=== PATIENT | female | born 1990 | race Caucasian/White ===

== ENCOUNTER 2021-11-25 11:39 | Emergency (ER) | payer BC, OTHER ==
[2021-11-25 12:07] VITALS: BP 121/79; PULSE 80; TEMP 97.5; BMI 36.8
[2021-11-25] MEDS ORDERED: IBUPROFEN 600 MG TABLET (FP) PO ONE ×2 (13:38)
== END 2021-11-25 14:23 | disposition home or self-care (01) ==
LOC: JERFT 11:39
PROC: 08QNXZZ Repair Right Upper Eyelid, External Approach (ICD-10-PCS; principal; 2021-11-25)
DX: S01.112A Laceration without foreign body of left eyelid and periocular area, initial encounter (principal); W22.8XXA Striking against or struck by other objects, initial encounter; Y07.03 Male partner, perpetrator of maltreatment and neglect
CPT/HCPCS: 99283-25

== ENCOUNTER 2021-12-02 16:23 | Emergency (ER) | payer OTHER ==
[2021-12-02 16:29] VITALS: BP 119/74; PULSE 78; RESP 17; TEMP 98.3; BMI 36.8
== END 2021-12-02 16:57 | disposition home or self-care (01) ==
LOC: JERFT 16:23
DX: Z48.02 Encounter for removal of sutures (principal)
CPT/HCPCS: 99281-25

== ENCOUNTER 2023-06-03 07:55 | Emergency (ER) | payer OTHER ==
[2023-06-03 08:09] VITALS: RESP 18; BMI 34.3
[2023-06-03 14:21] VITALS: BP 132/89; PULSE 100; TEMP 97.5
== END 2023-06-03 10:50 | disposition home or self-care (01) ==
LOC: JERFT 07:55
DX: R09.81 Nasal congestion (principal); J02.9 Acute pharyngitis, unspecified; R05.9 Cough, unspecified; R11.10 Vomiting, unspecified; R19.7 Diarrhea, unspecified; R50.9 Fever, unspecified; J10.1 Influenza due to other identified influenza virus with other respiratory manifestations; Z20.822 Contact with and (suspected) exposure to COVID-19
CPT/HCPCS: 0241U-QW; 99283-25

== ENCOUNTER 2023-06-06 12:30 | Emergency (ER) | payer OTHER ==
[2023-06-06 12:36] VITALS: BP 144/91; PULSE 74; RESP 18; TEMP 99; BMI 34.3
[2023-06-06] MEDS ORDERED: SODIUM CHLORIDE FOR INHALATION 3 ML VIAL.NEB IH ONE (12:53)
[2023-06-06] MEDS ORDERED: ACETAMINOPHEN 500 MG TABLET (FP) PO ONE (12:55)
[2023-06-06] MEDS ORDERED: PSEUDOEPHEDRINE HCL 60 MG TABLET PO ONE (12:55)
[2023-06-06] MEDS ORDERED: KETOROLAC TROMETHAMINE 30 MG/1 ML VIAL IM ONE (12:56)
[2023-06-06] MEDS ORDERED: BENZONATATE 200 MG CAPSULE PO PRN (12:57)
[2023-06-06] MEDS ORDERED: BENZONATATE 200 MG CAPSULE PO ONE (13:01)
[2023-06-06] MEDS ORDERED: KETOROLAC TROMETHAMINE 30 MG/1 ML VIAL ONE (13:12)
[2023-06-06] MEDS ORDERED: DEXAMETHASONE SOD PHOSPHATE 10 MG/1 ML VIAL IVPUSH ONE (13:29)
[2023-06-06] MEDS ORDERED: SODIUM CHLORIDE 0.9% 500 ML INFUS.BAG IV ONE (13:29)
[2023-06-06] MEDS ORDERED: DEXAMETHASONE SOD PHOSPHATE 10 MG/1 ML VIAL ONE (13:52)
[2023-06-06] MEDS ORDERED: ACETAMINOPHEN 500 MG TABLET (FP) ONE (13:52)
== END 2023-06-06 15:13 | disposition home or self-care (01) ==
LOC: JERFT 12:30
PROC: 3E033GC Introduction of Other Therapeutic Substance into Peripheral Vein, Percutaneous Approach (ICD-10-PCS; principal; 2023-06-06)
PROC: 3E0233Z Introduction of Anti-inflammatory into Muscle, Percutaneous Approach (ICD-10-PCS; 2023-06-06)
PROC: 3E0F7GC Introduction of Other Therapeutic Substance into Respiratory Tract, Via Natural or Artificial Opening (ICD-10-PCS; 2023-06-06)
DX: R05.9 Cough, unspecified (principal); R11.10 Vomiting, unspecified; J11.1 Influenza due to unidentified influenza virus with other respiratory manifestations; Z20.822 Contact with and (suspected) exposure to COVID-19
CPT/HCPCS: 0241U-QW; 99284-25; J1100

== ENCOUNTER 2023-06-09 17:41 | Emergency (ER) | payer OTHER ==
[2023-06-09 17:50] VITALS: BP 133/91; PULSE 62; RESP 24; TEMP 97.9; BMI 34.3
[2023-06-09] MEDS ORDERED: METOCLOPRAMIDE HCL INJECTION 10 MG/2 ML VIAL IVPUSH ONE (18:54)
[2023-06-09] MEDS ORDERED: ACETAMINOPHEN 1000 MG/100 ML BAG IVPB ONE (18:54)
[2023-06-09] MEDS ORDERED: LACTATED RINGERS SOLUTION 1000 ML INFUS.BAG IV ONE (18:54)
[2023-06-09] MEDS ORDERED: FAMOTIDINE 20 MG/50 ML IVPB 20 MG/50 ML MG IVPB ONE ×2 (19:00→20:14)
[2023-06-09 19:25] LABS: PH,URINE 6.5 (5.0-8.0); URINE APPEARANCE CLEAR; URINE BILIRUBIN NEGATIVE (NEGATIVE); URINE COLOR YELLOW; URINE GLUCOSE (UA) NEGATIVE (NEGATIVE); URINE KETONE NEGATIVE (NEGATIVE); URINE LEUK ESTERASE NEGATIVE (NEGATIVE); URINE NITRITE NEGATIVE (NEGATIVE); URINE PROTEIN NEGATIVE (NEGATIVE); URINE UROBILINOGEN 0.2 mg/dL (0.2-1.0)
[2023-06-09] MEDS ORDERED: METOCLOPRAMIDE HCL INJECTION 10 MG/2 ML VIAL ONE (20:13)
[2023-06-09] MEDS ORDERED: ACETAMINOPHEN INJECTION 100 ML IVPB ONE (20:13)
[2023-06-09 20:19] LABS: BASO % 0.9 % (0-2.0); EOS % 2.7 % (0-4.5); LYMPH % 25.5 % (8-40); MCHC 35.1 g/dl (32.0-36.0); MEAN CELL VOLUME 85.4 fl (80-96); MONO % 7.8 % (3.8-10.2); NEUT % 63.1 % (42.8-82.8); PLATELET COUNT 385 10^3/uL (134-434); RBC 4.68 M/mm3 (3.60-5.2); RDW 12.4 % (11.6-15.6)
[2023-06-09 20:35] LABS: POTASSIUM 3.9 mmol/L (3.5-5.1)
[2023-06-09 20:37] LABS: ALBUMIN 3.8 g/dl (3.4-5.0); BLOOD UREA NITROGEN 10.6 mg/dL (7-18); MAGNESIUM 1.9 mg/dL (1.8-2.4)
[2023-06-09 20:40] LABS: CREATININE 0.8 mg/dL (0.55-1.3)
[2023-06-09 20:42] LABS: BILIRUBIN,TOTAL 0.3 mg/dL (0.2-1)
== END 2023-06-09 21:59 | disposition home or self-care (01) ==
LOC: JER 17:41
PROC: 3E033GC Introduction of Other Therapeutic Substance into Peripheral Vein, Percutaneous Approach (ICD-10-PCS; principal; 2023-06-09)
PROC: 3E033NZ Introduction of Analgesics, Hypnotics, Sedatives into Peripheral Vein, Percutaneous Approach (ICD-10-PCS; 2023-06-09)
PROC: 3E033GC Introduction of Other Therapeutic Substance into Peripheral Vein, Percutaneous Approach (ICD-10-PCS; 2023-06-09)
DX: R05.9 Cough, unspecified (principal); R19.7 Diarrhea, unspecified; R51.9 Headache, unspecified; R53.1 Weakness; J11.1 Influenza due to unidentified influenza virus with other respiratory manifestations; Z20.822 Contact with and (suspected) exposure to COVID-19
CPT/HCPCS: 0241U-QW; 36415; 71046-TC-FY; 80053; 81003; 83735; 84703; 85025; 87086; 93005; 93010; 99285-25; J0131

== ENCOUNTER 2024-06-30 14:18 | Emergency (ER) | payer OTHER ==
[2024-06-30 14:27] VITALS: TEMP 98.8; BMI 38.6
[2024-06-30] MEDS: ALBUTEROL SO4 2.5/IPRATROPIUM 0.5 INH SOL 3 ML VIAL.NEB. NEB SCH (15:05)
[2024-06-30] MEDS ORDERED: ACETAMINOPHEN 325 MG TABLET (FP) ONE (16:10)
[2024-06-30] MEDS: ACETAMINOPHEN 325 MG TABLET (FP) PO ONE (16:11)
[2024-06-30 18:30] VITALS: BP 140/70; PULSE 86; RESP 17
== END 2024-06-30 18:30 | disposition home or self-care (01) ==
LOC: JERFT 14:18
PROC: 3E0F7GC Introduction of Other Therapeutic Substance into Respiratory Tract, Via Natural or Artificial Opening (ICD-10-PCS; principal; 2024-06-30)
DX: J10.1 Influenza due to other identified influenza virus with other respiratory manifestations (principal); R50.9 Fever, unspecified; R05.9 Cough, unspecified; M79.10 Myalgia, unspecified site; R19.7 Diarrhea, unspecified; R11.10 Vomiting, unspecified; R00.0 Tachycardia, unspecified; Z20.822 Contact with and (suspected) exposure to COVID-19
CPT/HCPCS: 0241U-QW; 87651; 99284-25